=== PATIENT | female | born 1970 | race Two or more races ===

== ENCOUNTER 2016-09-28 06:18 | Emergency (ER) | payer MEDICAID ==
[2016-09-28] MEDS ORDERED: NORMAL SALINE 1000 ML 1,000 ML IV ONE (06:47)
[2016-09-28] MEDS ORDERED: ONDANSETRON HCL INJ/PF 4 MG/2 ML SDV IV ONE ×2 (06:47→06:59)
[2016-09-28] MEDS ORDERED: MAG HYDROX/AL HYDROX/SIMETH SUSP 30 ML UDCUP PO ONE ×2 (06:59→08:39)
[2016-09-28] MEDS ORDERED: LIDOCAINE 2% VISCOUS SOLN 20 ML UDCUP PO ONE ×2 (06:59→08:39)
[2016-09-28] MEDS ORDERED: FAMOTIDINE INJ/PF 20 MG/2 ML SDV IV ONE (06:59)
--- NOTE | 2016-09-28 07:04 | ER Document Report ---
ED GI/ - General Information source: Patient TRAVEL OUTSIDE OF THE [place] IN LAST 30 DAYS: No - HPI Patient complains to provider of: Abdominal pain Onset: This morning - ~02:00 Timing/Duration: Sudden, Persistent Location: Epigastric Associated symptoms: Nausea, Vomiting, Other - "soft bowel movements". denies: Fever <ALINA PHILLIPS - Last Filed: 09/28/16 06:58> <IRMA KENT - Last Filed: 09/28/16 09:12> - General Chief Complaint: Abdominal Pain Stated Complaint: ABDOMINAL PAIN,VOMITING Notes: Patient is a 46-year-old female presenting to the emergency department concerned of epigastric abdominal pain onset at approximately 02:00 today. Patient admits to nausea, vomiting, and "soft bowel movements". Patient denies any fever. Patient states that she ate hot peppers yesterday at 09:00 and 15: 00. Patient also states that she drank alcohol and then ate beans and vegetables. After that, patient states that she went to sleep. Patient admits to occasional acid reflux. (ALINA PHILLIPS) - Related Data Allergies/Adverse Reactions: Sulfa (Sulfonamide Antibiotics) Allergy (Verified 02/09/15 13:39) Hives Past Medical History - General Information source: Patient - Social History Smoking Status: Never Smoker Chew tobacco use (# tins/day): Yes Frequency of alcohol use: Social Family History: Reviewed & Not Pertinent, Arthritis, CAD, CVA, Hyperlipidemia, Hypertension Musculoskeltal Medical History: Reports Hx Arthritis, Reports Hx Musculoskeletal Deformity, Reports Hx Musculoskeletal Trauma Psychiatric Medical History: Reports: Hx Bipolar Disorder, Hx Depression Traumatic Medical History: Reports: Hx Fractures - hands feet Past Surgical History: Reports: Hx Section, Hx Orthopedic Surgery - Immunizations Hx Diphtheria, Pertussis, Tetanus Vaccination: Yes <ALINA PHILLIPS - Last Filed: 09/28/16 06:58> Review of Systems - Review of Systems Constitutional: No symptoms reported. denies: Fever EENT: No symptoms reported Cardiovascular: No symptoms reported Respiratory: No symptoms reported Gastrointestinal: Abdominal pain, Diarrhea - "soft bowel movements", Nausea, Vomiting Genitourinary: No symptoms reported Female Genitourinary: No symptoms reported Musculoskeletal: No symptoms reported Skin: No symptoms reported Hematologic/Lymphatic: No symptoms reported Neurological/Psychological: No symptoms reported -: Yes All other systems reviewed and negative <ALINA PHILLIPS - Last Filed: 09/28/16 06:58> Physical Exam - General General appearance: Alert - HEENT Head: Normocephalic, Atraumatic Eyes: Normal Pupils: PERRL - Respiratory Respiratory status: No respiratory distress Chest status: Nontender Breath sounds: Normal Chest palpation: Normal - Cardiovascular Rhythm: Regular Heart sounds: Normal auscultation Murmur: No - Abdominal Inspection: Obese Distension: No distension Bowel sounds: Normal Tenderness: Tender - Epigastric tenderness Organomegaly: No organomegaly - Back Back: Normal, Nontender - Extremities General upper extremity: Normal inspection General lower extremity: Normal inspection - Neurological Neuro grossly intact: Yes Cognition: Normal Vielka Coma Scale Eye Opening: Spontaneous [place] Coma Scale Verbal: Oriented [place] Coma Scale Motor: Obeys Commands Vielka Coma Scale Total: 15 Speech: Normal - Psychological Associated symptoms: Normal affect, Normal mood - Skin Skin Temperature: Warm Skin Moisture: Dry Skin Color: Normal <ALINA PHILLIPS - Last Filed: 09/28/16 06:58> Course <ALINA PHILLIPS - Last Filed: 09/28/16 06:58> - Laboratory Result Diagrams: 09/28/16 07:40 09/28/16 07:40 <IRMA KENT - Last Filed: 09/28/16 09:12> - Re-evaluation Re-evalutation: 09/28/16 08:40 Patient was sleeping. He was given for exam. He states the cocktail improved her discomfort but is starting come back now. It appears her symptoms are combination of eating hot peppers throughout the day , and drinking alcohol on an empty stomach. She does have prior visits for severe injuries related to excessive alcohol use. (IRMA KENT) - Vital Signs Vital signs: Temp Pulse Resp BP Pulse Ox 98.5 F 116 H 20 139/95 H 95 09/28/16 06:24 09/28/16 06:24 09/28/16 06:24 09/28/16 06:24 09/28/16 06:24 (ALINA PHILLIPS) (IRMA KENT) - Laboratory Laboratory results interpreted by me: 09/28/16 09/28/16 09/28/16 07:40 07:40 08:15 WBC 12.7 H Seg Neutrophils % 83.4 H Lymphocytes % 11.9 L Absolute Neutrophils 10.6 H Sodium 145.3 H Glucose 136 H AST 90 H ALT 100 H Total Protein 8.5 H Urine Protein 100 H Urine Blood LARGE H (YOLI,IRMA) Discharge <ALINA PHILLIPS - Last Filed: 09/28/16 06:58> <YOLI,IRMA - Last Filed: 09/28/16 09:12> - Discharge Clinical Impression: GERD (gastroesophageal reflux disease) Qualifiers: Esophagitis presence: esophagitis presence not specified Qualified Code(s): K21.9 - Gastro-esophageal reflux disease without esophagitis Condition: Stable Disposition: HOME, SELF-CARE Additional Instructions: Reflux Disease (GERD): Gastro-Esophageal Reflux Disease (GERD) is caused by stomach acid refluxing back up into the esophagus. The valve at the end of the esophagus may be weak. This is common in persons with a hiatal hernia. GERD symptoms can include indigestion, chest pain, heartburn, or food "sticking." Certain foods, alcohol, and aspirin can make GERD worse. Treatment depends on the severity. Usually, antacids or acid-suppressing medicines are used. When the esophagus is acutely inflamed, the physician will often prescribe membrane-protective drugs such as Carafate. Some patients benefit from medication such as Reglan that tightens the valve at the top of the stomach. Avoid those foods that bring on your symptoms. For many people, these foods are coffee, chocolate, onions, garlic, and carbonated drinks. Don't use alcohol, aspirin, caffeine, or tobacco. Don't eat late at night -- within 4 hours of bedtime. Don't over-eat. If necessary, elevate the head of your bed about 4 inches so that stomach acid will not roll up into your esophagus. Call the doctor if you develop severe chest pain, inability to swallow fluids, fever, or worsening symptoms. Gastritis: You have an inflammation of the stomach called gastritis. This commonly causes upper abdominal pain, nausea, and vomiting. In severe cases, bleeding of the stomach lining can occur. Gastritis can be caused by bacteria or viruses , alcohol, or stomach-irritating drugs. Begin with sips of clear liquids. Take increasing amounts of fluid over the first 24 hours. Then start small amounts of bland foods (such as dry toast , applesauce, mashed potato). Gradually resume your usual diet. You should take antacids every two hours until the pain has subsided. Acid -suppressing drugs may be prescribed as well. Avoid aspirin, caffeine, tobacco , and alcohol. If the abdominal pain worsens, or there is evidence of major bleeding in the stomach (such as black, tarry stool, bloody or black vomit, or lightheadedness), you should return immediately. Call the doctor if you aren't improved in 24 to 36 hours. EAT A BLAND DIET. TAKE PRILOSEC OTC EVERY DAY. AVOID ALCOHOL, ACIDIC DRINKS, SPICEY FOODS, ETC. TAKE ANTI-ACIDS BETWEEN MEALS AND AT BEDTIME. FOLLOW UP WITH YOUR DOCTOR IF NOT IMPROVING. RETURN TO THE EMERGENCY ROOM IF ANY NEW OR WORSENING SYMPTOMS. Referrals: MISTY MAN MD [Primary Care Provider] - Follow up as needed Scribe Attestation: 09/28/16 09:12 I personally performed the services described in the documentation, reviewed and edited the documentation which was dictated to the scribe in my presence, and it accurately records my words and actions. (IRMA KENT) Scribe Documentation <ALINA PHILLIPS - Last Filed: 09/28/16 06:58> <IRMA KENT - Last Filed: 09/28/16 09:12> - Scribe Written by Scribe:: IRMA KENT MD, SCRIBE 09/28/16 [id number] Acting as scribe for: Dr. Kent (ALINA PHILLIPS) (IRMA KENT)
[2016-09-28 08:05] LABS: ABSOLUTE EOSINOPHILS # (AUTO) 0.1 10^3/uL (0.0-0.6); ABSOLUTE LYMPHOCYTES (AUTO) 1.5 10^3/uL (0.5-4.7); ABSOLUTE MONOCYTES (AUTO) 0.5 10^3/uL (0.1-1.4); ABSOLUTE NEUT (AUTO) 10.6 10^3/uL (1.7-8.2); BASOPHILS % (AUTO) 0.3 % (0-2); EOSINOPHILS % (AUTO) 0.5 % (0-6); HEMATOCRIT 46.8 % (36.0-47.0); HEMOGLOBIN 15.2 g/dL (12.0-15.5); HGB HCT DIFFERENCE -1.2; LYMPHOCYTES % (AUTO) 11.9 % (13-45); MEAN CORPUSCULAR HEMOGLOBIN 29.5 pg (27.0-33.4); MEAN CORPUSCULAR HGB CONC 32.4 g/dL (32.0-36.0); MEAN CORPUSCULAR VOLUME 91 fl (80-97); MONOCYTES % (AUTO) 3.9 % (3-13); RED BLOOD COUNT 5.14 10^6/uL (3.72-5.28); RED CELL DISTRIBUTION WIDTH 13.1 % (11.5-14.0); SEGMENTED NEUTROPHILS % (AUTO) 83.4 % (42-78); WHITE BLOOD COUNT 12.7 10^3/uL (4.0-10.5)
[2016-09-28 08:30] LABS: ALANINE AMINOTRANSFERASE 100 U/L (9-52); ALBUMIN 4.8 g/dL (3.5-5.0); ALKALINE PHOSPHATASE 117 U/L (38-126); ANION GAP 14 (5-19); ASPARTATE AMINO TRANSFERASE 90 U/L (14-36); BILIRUBIN,TOTAL 0.5 mg/dL (0.2-1.3); BLOOD UREA NITROGEN 8 mg/dL (7-20); CARBON DIOXIDE 27 mmol/L (22-30); CHLORIDE 104 mmol/L (98-107); CREATININE RESULT 0.63 mg/dL (0.52-1.25); GLUCOSE 136 mg/dL (75-110); POTASSIUM 4.7 mmol/L (3.6-5.0); SODIUM 145.3 mmol/L (137-145); TOTAL PROTEIN 8.5 g/dL (6.3-8.2)
[2016-09-28 08:45] LABS: AMORPHOUS SEDIMENT,URINE TRACE /HPF; APPEARANCE,URINE TURBID; BILIRUBIN,URINE NEGATIVE (NEGATIVE); GLUCOSE, URINE NEGATIVE (NEGATIVE); KETONES,URINE NEGATIVE (NEGATIVE); LEUKOCYTE ESTERASE,URINE NEGATIVE (NEGATIVE); NITRITE,URINE NEGATIVE (NEGATIVE); PROTEIN,URINE 100 mg/dL (NEGATIVE); URINE SPECIFIC GRAVITY 1.025; UROBILINOGEN,URINE NEGATIVE mg/dL (<2.0)
[2016-09-28] MEDS ORDERED: FENTANYL CITRATE INJ/PF 100 MCG/2 ML AMPUL IV ONE (09:18)
[2016-09-28 10:42] VITALS: BP 150/88
== END 2016-09-28 10:42 | disposition home or self-care (01) ==
LOC: ER 06:18
DX: K21.9 Gastro-esophageal reflux disease without esophagitis (principal); R10.13 Epigastric pain; R11.2 Nausea with vomiting, unspecified; E66.9 Obesity, unspecified; R19.7 Diarrhea, unspecified; Z88.2 Allergy status to sulfonamides
CPT/HCPCS: 99284; 96361; 96374; 96375; 36415; 84703; 85025; 80053; 81001; J3010; J3490 ×2; J2405; J7030; S0028

== ENCOUNTER 2017-06-07 22:04 | Emergency (ER) | payer MEDICAID ==
[2017-06-07] MEDS ORDERED: ACETAMINOPHEN 325 MG TABLET PO ONE (22:14)
--- NOTE | 2017-06-07 22:47 | RADIOLOGY REPORT (SQ) ---
EXAM DESCRIPTION: ANKLE RIGHT COMPLETE COMPLETED DATE/TIME: 06/07/2017 10:35 pm REASON FOR STUDY: pain COMPARISON: None. NUMBER OF VIEWS: Three views. TECHNIQUE: AP, lateral, and oblique radiographic images acquired of the right ankle. LIMITATIONS: None. FINDINGS: MINERALIZATION: Normal. BONES: No acute fracture or dislocation. There is bony deformity of the distal tibia presumably rela tonya to previous trauma. JOINTS: No effusions. SOFT TISSUES: No soft tissue swelling. No foreign body. OTHER: Orthopedic hardware is identified at the level of the distal tibia. IMPRESSION: No acute fracture or dislocation. Postsurgical changes at the level of the distal tibia with orthopedic hardware and deformity of the distal tibia presumably related to previous trauma. O ther findings as noted above TECHNICAL DOCUMENTATION: JOB ID: [id number] [employer]- All Rights Reserved
--- NOTE | 2017-06-07 22:49 | RADIOLOGY REPORT (SQ) ---
EXAM DESCRIPTION: FOOT RIGHT COMPLETE COMPLETED DATE/TIME: 06/07/2017 10:35 pm REASON FOR STUDY: fall COMPARISON: August 2015 NUMBER OF VIEWS: Three views. TECHNIQUE: AP, lateral and oblique radiographic images acquired of the right foot. LIMITATIONS: None. FINDINGS: MINERALIZATION: Normal. BONES: No acute fracture or dislocation. A separate bony ossicle is identified at the level of the p roximal end of the proximal phalanx of the 1st digit which may be related to previous trauma JOINTS: Degenerative changes are again identified at the level of the 1st MCP joint and at the level of the DIP joint of the 3rd digit. SOFT TISSUES: No soft tissue swelling. No foreign body. OTHER: Minimal plantar spurring is identified. IMPRESSION: Degenerative changes without evidence for acute fracture or dislocation. Other findings as noted above TECHNICAL DOCUMENTATION: JOB ID: [id number]- All Rights Reserved
--- NOTE | 2017-06-07 22:51 | ER Document Report ---
ED Extremity Problem, Lower - General Chief Complaint: Ankle Injury Stated Complaint: ANKLE INJURY Time Seen by Provider: 06/07/17 22:14 TRAVEL OUTSIDE OF THE [place] IN LAST 30 DAYS: No - HPI Patient complains to provider of: Injury - right ankle Location: Ankle - rolled her ankle tonight at her home Occurred: Just prior to arrival Where: Home Quality of pain: Achy Severity: None - in the splint Context: Twisted Recent injury: Yes - earlier this evening Associated symptoms: Painful ambulation. denies: Chest pain, Chills, Dizzy, Fainting, Fever, Traill a crack, Traill a pop, Hurts to breath, Rapid heart rate, Seizure, Short of breath, Sweaty, Unable to bear weight, Weak, Other Exacerbated by: Movement, Walking Relieved by: Elevation, Ice, Rest Other injuries: previous hardware in this ankle form previous trauma - Related Data Allergies/Adverse Reactions: Sulfa (Sulfonamide Antibiotics) Allergy (Verified 02/09/15 13:39) Hives Past Medical History - Social History Smoking Status: Current Every Day Smoker Frequency of alcohol use: Social Family History: Reviewed & Not Pertinent, Arthritis, CAD, CVA, Hyperlipidemia, Hypertension - Past Medical History Cardiac Medical History: Denies: Hx Heart Attack, Hx Hypertension Pulmonary Medical History: Denies: Hx Asthma Neurological Medical History: Denies: Hx Cerebrovascular Accident, Hx Seizures Renal/ Medical History: Denies: Hx Peritoneal Dialysis GI Medical History: Denies: Hx Hepatitis, Hx Hiatal Hernia, Hx Ulcer Musculoskeltal Medical History: Reports Hx Arthritis, Reports Hx Musculoskeletal Deformity, Reports Hx Musculoskeletal Trauma Psychiatric Medical History: Reports: Hx Bipolar Disorder, Hx Depression Traumatic Medical History: Reports: Hx Fractures - hands feet Infectious Medical History: Denies: Hx Hepatitis Past Surgical History: Reports: Hx Section, Hx Orthopedic Surgery. Denies: Hx Mastectomy, Hx Open Heart Surgery, Hx Pacemaker - Immunizations Hx Diphtheria, Pertussis, Tetanus Vaccination: Yes Review of Systems - Review of Systems Constitutional: No symptoms reported Musculoskeletal: See HPI Neurological/Psychological: No symptoms reported -: Yes All other systems reviewed and negative Physical Exam - Vital signs Vitals: Temp Pulse Resp BP Pulse Ox 98.9 F 108 H 20 114/87 H 97 06/07/17 22:05 06/07/17 22:05 06/07/17 22:05 06/07/17 22:05 06/07/17 22:05 - General General appearance: Appears well, Alert In distress: None - Cardiovascular Pulses: Normal: Popliteal, Posterior tibial, Dorsalis pedis Normal capillary refill: Yes - Extremities General lower extremity: Normal inspection, Tender - medial malleolus, Normal color, Normal ROM, Normal strength, Normal temperature, Normal weight bearing Calf: Normal, Nontender Ankle: Normal, Tender. No: Nontender, Abrasion, Deformity, Edema, Ecchymosis, Instability, Laceration, Limited ROM, Positive Hernandez's test, Unable to bear weight, Other Foot: Normal, Nontender - Neurological Neuro grossly intact: Yes Cognition: Normal Orientation: AAOx4 Vielka Coma Scale Eye Opening: Spontaneous [place] Coma Scale Verbal: Oriented Viel[place] Coma Scale Motor: Obeys Commands [place] Coma Scale Total: 15 Motor strength normal: LLE, RLE Additional motor exam normals: Equal derrick man. No: Weakness Sensory: Normal - Skin Skin Temperature: Warm Skin Moisture: Dry Skin Color: Normal Skin Turgor: Elastic Course - Re-evaluation Re-evalutation: 06/08/17 22:10 No evidence of a septic joint, gout flare, dislocation, or fracture on exam and imaging. Vitals wnl. At this time, I do not see an indication for labs or further imaging. Will discharge with conservative measures, return precautions, and follow-up recommendations. - Vital Signs Vital signs: Temp Pulse Resp BP Pulse Ox 98.9 F 105 H 22 H 118/77 99 06/07/17 22:05 06/07/17 23:20 06/07/17 23:20 06/07/17 23:20 06/07/17 23:20 - Diagnostic Test Radiology reviewed: Image reviewed, Reports reviewed Discharge - Discharge Clinical Impression: Ankle injury Qualifiers: Encounter type: initial encounter Laterality: right Qualified Code(s): S99.911A - Unspecified injury of right ankle, initial encounter Condition: Good Disposition: HOME, SELF-CARE Instructions: Use of Crutches ([facility]), Ice & Elevation ([facility]), Sprained Ankle ([facility] ) Referrals: LOCALMD,NO [Primary Care Provider] - Follow up as needed
[2017-06-07 23:21] VITALS: BP 118/77
== END 2017-06-07 23:20 | disposition home or self-care (01) ==
LOC: ER 22:04
DX: S99.911A Unspecified injury of right ankle, initial encounter (principal); M25.571 Pain in right ankle and joints of right foot; X58.XXXA Exposure to other specified factors, initial encounter; F17.200 Nicotine dependence, unspecified, uncomplicated
CPT/HCPCS: 99283; 73610; 73630; L1902; J3490

== ENCOUNTER 2017-06-19 09:18 | Day surgery (SDC) | payer MEDICAID ==
[2017-06-11 09:41] LABS: ABSOLUTE EOSINOPHILS # (AUTO) 0.1 10^3/uL (0.0-0.6); ABSOLUTE LYMPHOCYTES (AUTO) 1.8 10^3/uL (0.5-4.7); ABSOLUTE MONOCYTES (AUTO) 0.4 10^3/uL (0.1-1.4); ABSOLUTE NEUT (AUTO) 4.9 10^3/uL (1.7-8.2); BASOPHILS % (AUTO) 0.4 % (0-2); EOSINOPHILS % (AUTO) 1.6 % (0-6); HEMOGLOBIN 14.3 g/dL (12.0-15.5); HGB HCT DIFFERENCE 1.9; LYMPHOCYTES % (AUTO) 25.2 % (13-45); MEAN CORPUSCULAR HEMOGLOBIN 30.7 pg (27.0-33.4); MEAN CORPUSCULAR VOLUME 88 fl (80-97); MONOCYTES % (AUTO) 5.2 % (3-13); RED BLOOD COUNT 4.67 10^6/uL (3.72-5.28); SEGMENTED NEUTROPHILS % (AUTO) 67.6 % (42-78); WHITE BLOOD COUNT 7.3 10^3/uL (4.0-10.5)
[2017-06-11 09:52] LABS: APPEARANCE,URINE SLIGHTLY-CLOUDY; BILIRUBIN,URINE NEGATIVE (NEGATIVE); GLUCOSE, URINE NEGATIVE (NEGATIVE); KETONES,URINE TRACE mg/dL (NEGATIVE); LEUKOCYTE ESTERASE,URINE NEGATIVE (NEGATIVE); NITRITE,URINE NEGATIVE (NEGATIVE); PROTEIN,URINE 30 mg/dL (NEGATIVE); URINE SPECIFIC GRAVITY 1.035
[2017-06-11 10:13] LABS: ANION GAP 9 (5-19); BLOOD UREA NITROGEN 11 mg/dL (7-20); CALCIUM 9.1 mg/dL (8.4-10.2); CARBON DIOXIDE 25 mmol/L (22-30); CHLORIDE 107 mmol/L (98-107); CREATININE RESULT 0.73 mg/dL (0.52-1.25); GLUCOSE 120 mg/dL (75-110); POTASSIUM 3.7 mmol/L (3.6-5.0)
--- NOTE | 2017-06-11 11:04 | RADIOLOGY REPORT (SQ) ---
EXAM DESCRIPTION: CHEST PA/LATERAL COMPLETED DATE/TIME: 06/11/2017 10:38 am REASON FOR STUDY: PRE OP M77.11 LATERAL EPICONDYLITIS, RIGHT ELBOW COMPARISON: 01/19/2016 NUMBER OF VIEWS: Two view. TECHNIQUE: Frontal and lateral radiographic views of the chest acquired. LIMITATIONS: None. FINDINGS: LUNGS AND PLEURA: No opacities, masses or pneumothorax. No pleural effusion. MEDIASTINUM AND HILAR STRUCTURES: No masses. No contour abnormalities. HEART AND VASCULAR STRUCTURES: Heart enlarged without failure. Aorta normal for age. BONES: No acute findings. HARDWARE: None in the chest. OTHER: No other significant finding. IMPRESSION: CARDIAC ENLARGEMENT WITHOUT FAILURE. TECHNICAL DOCUMENTATION: JOB ID: [id number] [employer]- All Rights Reserved
--- NOTE | 2017-06-11 12:23 | EKG REPORT ---
SEVERITY:- ABNORMAL ECG - SINUS RHYTHM LEFT VENTRICULAR HYPERTROPHY : Confirmed by: Sapna Hugo MD 11-Jun-2017 12:23:08
[~2017-06-19 09:18] MED LIST: CEFAZOLIN 2 GM/D5W RTU 2 GM/50 ML RTUPB IV PRN; LACTATED RINGERS 1000 ML IV PRN; LIDOCAINE 0.5% INJ-PF (5 MG/ML) 50 ML SDV SUBCUT PRN
[2017-06-19] MEDS ORDERED: SUCCINYLCHOLINE CHLORIDE INJ 200 MG/10 ML VIAL ONE (11:01)
[2017-06-19] MEDS ORDERED: EPHEDRINE SULFATE INJ 50 MG/1 ML AMPULE ONE (12:08)
[2017-06-19] MEDS ORDERED: IBUPROFEN INJ 800 MG/8 ML VIAL IV ONE (12:08)
[2017-06-19] MEDS ORDERED: ONDANSETRON HCL INJ/PF 4 MG/2 ML SDV ONE (12:08)
[2017-06-19] MEDS ORDERED: PROPOFOL INJ 200 MG/20 ML VIAL IV ONE (12:08)
[2017-06-19] MEDS ORDERED: FENTANYL CITRATE INJ/PF 250 MCG/5 ML AMPULE ONE (12:08)
[2017-06-19] MEDS ORDERED: MIDAZOLAM 2 MG/2 ML INJ ONE (12:08)
[2017-06-19] MEDS ORDERED: DEXAMETHASONE SOD PHOSPHATE INJ 4 MG/1 ML VIAL ONE (12:08)
[2017-06-19] MEDS ORDERED: HYDROMORPHONE HCL INJ/PF 2 MG/ML AMPULE ONE (12:09)
[2017-06-19] MEDS ORDERED: FENTANYL CITRATE INJ/PF 100 MCG/2 ML AMPUL IV PRN ×3 (13:33)
[2017-06-19] MEDS ORDERED: MEPERIDINE HCL/PF INJ 25 MG/1 ML DISP.SYRIN IV PRN (13:33)
[2017-06-19] MEDS ORDERED: PROMETHAZINE HCL INJ 25 MG/1 ML VIAL IV PRN (13:33)
[2017-06-19] MEDS ORDERED: DIPHENHYDRAMINE HCL 50 MG/ML VIAL IV PRN (13:33)
[2017-06-19] MEDS ORDERED: BUPIVACAINE HCL 0.5%-EPI 1:200000 INJ/PF 30 ML VIAL ONE (13:46)
--- NOTE | 2017-06-19 14:51 | Operative Report ---
Operative Report DATE OF SURGERY: 06/19/17 PREOPERATIVE DIAGNOSIS: Right lateral epicondylitis POSTOPERATIVE DIAGNOSIS: Same OPERATION: Right elbow epicondylectomy and ECRB debridement and repair SURGEON: HARJEET BOSWELL ANESTHESIA: GA TISSUE REMOVED OR ALTERED: Degenerative ECRB tendon and rongured bone from lateral epicondyle COMPLICATIONS: None ESTIMATED BLOOD LOSS: 10mL INTRAOPERATIVE FINDINGS: As above PROCEDURE: Patient received preoperative antibiotics in the holding area and then was brought to the operating room where she was induced and intubated in the supine position. The right upper extremity was prepped and draped in a normal sterile surgical fashion. Timeout was done identifying the right side is a correct site. A sterile tourniquet was applied to the right upper arm. Extremity was elevated and the tourniquet was inflated at 250 mmHg. Quarter percent Marcaine with epinephrine then was injected in the anticipated surgical site. A 10 blade was used to do a 2 inch incision right over the lateral aspect of the lateral epicondyle. Standard Anabella approach was done to the epicondyle and radiocapitellar joint. The splitting of the conjoined tendon was done and and the debridement of the ECRB was done using a combination of ronguer and 15 blade. Once I was satisfied with the debridement of the ECRB disease tendon I proceeded to then used a rondure and rasp to debride and do a partial resection of the lateral epicondyle. At this point and I used a 3.0 mm bio composite suture tack and drilled and placed into the lateral epicondyle. Free needle was used then to pass the double loaded suture through the conjoined tendon for repair. I was able then to do knots to secure and repair the split of the tendon. The strands were then cut and then used 0 Vicryl to reinforce the repair. I reapproximated the subcutaneous tissue with 0 Vicryl and 2-0 Vicryl for the dermis and then 3-0 nylon for the skin. On the skin I used horizontal mattress technique. Extremity was cleaned and Xeroform followed by 4 x 4 dressing and soft roll was applied. Tourniquet was let down at 37 minutes and then Avila bandage was applied and the drapes were removed. Patient was successfully extubated and sent to PACU in a stable condition
[2017-06-19] MEDS ORDERED: OXYCODONE-ACETAMINOPHEN 5-325 MG TABLET PO PRN (14:57)
--- NOTE | 2017-06-19 14:57 | PDOC DISCHARGE SUMMARY ---
Discharge Summary (SDC) - Discharge Final Diagnosis: Right lateral epicondylectomy and tendon debridement Date of Surgery: 06/19/17 Discharge Date: 06/19/17 Condition: Good Treatment or Instructions: Patient to keep dressing on for 4 days. Okay to do gentle passive range of motion of the elbow. Wear sling as needed. Avoid heavy lifting anything greater than 5 pounds. Wear wrist brace as needed. Follow-up in 10-14 days. Prescriptions: Oxycodone HCl/Acetaminophen [Percocet 5-325 mg Tablet] 1 tab PO ASDIR PRN #30 tab PRN Reason: Referrals: MISTY MAN MD [Primary Care Provider] - Discharge Diet: As Tolerated Respiratory Treatments at Home: Deep Breathing/Coughing Discharge Activity: Activity As Tolerated, No Lifting/Push/Pulling Home Care Assistance: None Needed Report the Following to Your Physician Immediately: Shortness of Breath, Fever over 101 Degrees, Unusual Bleeding, Redness, Swelling, Warmth, Increased Soreness, Drainage-Yellow, Drainage-Elizabeth, Drainage-Green, Drainage-Foul Smelling
[2017-06-19 16:41] VITALS: BP 155/90
== END 2017-06-19 16:20 | disposition home or self-care (01) ==
LOC: OROUT 09:18
PROVIDERS: ATTEND Orthopaedic Surgery
PROC: 0LB30ZZ Excision of Right Upper Arm Tendon, Open Approach (ICD-10-PCS; 2017-06-19)
PROC: 0PBF0ZZ Excision of Right Humeral Shaft, Open Approach (ICD-10-PCS; principal; 2017-06-19 13:00)
DX: M77.11 Lateral epicondylitis, right elbow (principal); I10 Essential (primary) hypertension; Z88.2 Allergy status to sulfonamides; Z79.899 Other long term (current) drug therapy; Z79.1 Long term (current) use of non-steroidal anti-inflammatories (NSAID); Z87.891 Personal history of nicotine dependence; E66.9 Obesity, unspecified; Z68.37 Body mass index [BMI] 37.0-37.9, adult
CPT/HCPCS: 24358; 93005; 36415; 85025; 81025; 80048; 81001; 71020; 93010; L3650; J2250; J3490; J1100; J3010; J1170; J0330; J2405; J2704; J0690; J1741; 1740

== ENCOUNTER 2019-03-07 08:13 | Inpatient (IN) | payer MEDICAID ==
[2019-03-07] MEDS ORDERED: ONDANSETRON HCL INJ/PF 4 MG/2 ML SDV IV ONE (09:00)
[2019-03-07] MEDS ORDERED: MORPHINE SULFATE 10 MG/ML INJ IV ONE ×3 (09:00→14:37)
[2019-03-07] MEDS ORDERED: FAMOTIDINE INJ/PF 20 MG/2 ML SDV IV ONE (09:00)
[2019-03-07] MEDS ORDERED: NORMAL SALINE 1000 ML 1,000 ML IV ONE (09:01)
[2019-03-07 09:07] LABS: ABSOLUTE BASOPHILS # (AUTO) 0.1 10^3/uL (0.0-0.2); ABSOLUTE EOSINOPHILS # (AUTO) 0.1 10^3/uL (0.0-0.6); ABSOLUTE LYMPHOCYTES (AUTO) 2.9 10^3/uL (0.5-4.7); ABSOLUTE MONOCYTES (AUTO) 0.6 10^3/uL (0.1-1.4); ABSOLUTE NEUT (AUTO) 8.2 10^3/uL (1.7-8.2); BASOPHILS % (AUTO) 0.8 % (0-2); EOSINOPHILS % (AUTO) 0.8 % (0-6); HEMATOCRIT 47.8 % (36.0-47.0); HEMOGLOBIN 16.5 g/dL (12.0-15.5); LYMPHOCYTES % (AUTO) 24.3 % (13-45); MEAN CORPUSCULAR HEMOGLOBIN 30.4 pg (27.0-33.4); MEAN CORPUSCULAR HGB CONC 34.5 g/dL (32.0-36.0); MEAN CORPUSCULAR VOLUME 88 fl (80-97); MONOCYTES % (AUTO) 5.1 % (3-13); PLATELET COUNT 262 10^3/uL (150-450); RED BLOOD COUNT 5.43 10^6/uL (3.72-5.28); RED CELL DISTRIBUTION WIDTH 13.1 % (11.5-14.0); TOTAL CELLS COUNTED % (AUTO) 100 %; WHITE BLOOD COUNT 11.9 10^3/uL (4.0-10.5)
--- NOTE | 2019-03-07 09:14 | ER Document Report ---
ED GI/ - General Chief Complaint: Abdominal Pain Stated Complaint: VOMITING Time Seen by Provider: 03/07/19 08:44 Primary Care Provider: MISTY MAN MD [Primary Care Provider] - Follow up as needed Notes: Patient is a 48-year-old female presents to the emergency department with a chief complaint of epigastric pain. Patient states that around 10 PM last night she woke up with severe epigastric pain that is intermittent and stabbing in nature. Patient states that throughout the night the pain has gradually gotten worse. Patient states she has had nausea and did vomit once. Patient denies blood in her emesis. Patient states she feels like she does have to burp but cannot do so. Patient states she also feels very constipated. Patient states that last time she had a bowel movement was 2 days ago. Patient states that last night around 2 AM she did attempt to have a bowel movement but it was very hard to come out. Patient denies lower abdominal pain or fever. Patient states last thing she ate was broccoli lasagna around 7 PM last night. Patient states she has had similar pain this before when she had food poisoning in 2009. Patient states the episode in 2009 was more severe. Patient complains of diaphoresis. Patient denies any past medical history or surgical history. Patient states she does have an IUD. Patient states she is does have some tingling with urination but denies back pain. TRAVEL OUTSIDE OF THE [place] IN LAST 30 DAYS: No - Related Data Allergies/Adverse Reactions: latex Allergy (Severe, Verified 03/07/19 08:14) ? Sulfa (Sulfonamide Antibiotics) Allergy (Verified 03/07/19 08:14) Hives Past Medical History - General Information source: Patient - Social History Smoking Status: Unknown if Ever Smoked Cigarette use (# per day): No Chew tobacco use (# tins/day): No Frequency of alcohol use: None Drug Abuse: None Lives with: Family Family History: Reviewed & Not Pertinent, Arthritis, CAD, CVA, Hyperlipidemia, Hypertension Patient has suicidal ideation: No Patient has homicidal ideation: No - Past Medical History Cardiac Medical History: Reports: None Denies: Hx Heart Attack, Hx Hypertension Pulmonary Medical History: Reports: None Denies: Hx Asthma EENT Medical History: Reports: None Neurological Medical History: Reports: None. Denies: Hx Cerebrovascular Accident, Hx Seizures Endocrine Medical History: Reports: None Renal/ Medical History: Reports: None. Denies: Hx Peritoneal Dialysis Malignancy Medical History: Reports: None GI Medical History: Reports: None. Denies: Hx Hepatitis, Hx Hiatal Hernia, Hx Ulcer Musculoskeletal Medical History: Reports Hx Arthritis, Reports Hx Musculoskeletal Deformity, Reports Hx Musculoskeletal Trauma Skin Medical History: Reports None Psychiatric Medical History: Reports: Hx Bipolar Disorder, Hx Depression Traumatic Medical History: Reports: Hx Fractures - hands feet Infectious Medical History: Denies: Hx Hepatitis Past Surgical History: Reports: Hx Section, Hx Orthopedic Surgery. Denies: Hx Mastectomy, Hx Open Heart Surgery, Hx Pacemaker - Immunizations Hx Diphtheria, Pertussis, Tetanus Vaccination: Yes Review of Systems - Review of Systems Constitutional: See HPI EENT: No symptoms reported Cardiovascular: No symptoms reported Respiratory: No symptoms reported Gastrointestinal: See HPI Genitourinary: See HPI Female Genitourinary: No symptoms reported Musculoskeletal: No symptoms reported Skin: No symptoms reported Hematologic/Lymphatic: No symptoms reported Neurological/Psychological: No symptoms reported Physical Exam - Vital signs Vitals: Temp Pulse Resp BP Pulse Ox 97.9 F 87 20 154/99 H 96 03/07/19 08:23 03/07/19 08:23 03/07/19 08:23 03/07/19 08:23 03/07/19 08:23 Interpretation: Hypertensive - Notes Notes: GENERAL: Ill-appearing, well-nourished and in moderate distress. HEAD: Atraumatic, normocephalic. EYES: Pupils equal round and reactive to light, extraocular movements intact, sclera anicteric, conjunctiva are normal. ENT: Nares patent, oropharynx clear without exudates. Moist mucous membranes. NECK: Normal range of motion, supple without lymphadenopathy or JVD. LUNGS: Breath sounds clear to auscultation bilaterally and equal. No wheezes rales or rhonchi. HEART: Regular rate and rhythm without murmurs, rubs or gallops. ABDOMEN: Soft, obese, round, upper abdominal tenderness, normoactive bowel sounds. No guarding. No masses appreciated. BACK: No cervical, thoracic, lumbar midline tenderness. No saddle anesthesia, normal distal neurovascular exam. GENITOURINARY: Deferred. EXTREMITIES: Normal range of motion, no pitting or edema. No clubbing or cyanosis. NEUROLOGICAL: Cranial nerves II through XII grossly intact. Normal speech, normal gait. PSYCH: Normal mood, normal affect. SKIN: Diaphoretic, cool to touch. No rash. Course - Re-evaluation Re-evalutation: 03/07/19 09:13 On initial evaluation patient sitting upright on the side of the bed in moderate distress. Patient is moaning in pain and is diaphoretic. Patient complains of severe intermittent epigastric pain that feels like a stabbing. Patient states she did have similar pain like this before when she had food poisoning in 2009. Patient states that the episode in 2009 was much worse. Patient states last thing she ate was broccoli/lasagna around 7 PM last night. Patient states she has been up all night with worsening of abdominal pain. Patient does require p ain medication as well as anti-nausea medication. Will reassess patient when she is more comfortable and able to lay on the stretcher. IV fluids initiated. She does admit to drinking alcohol socially but states she has not had any in the past 24 hours. Patient does report a history of acid reflux but does not take any medications. 03/07/19 10:03 Reevaluation patient states that her pain is completely gone. Patient states she does feel a rumbling around the epigastric region of her abdomen. Patient states her nausea has improved. Patient states she does have issues with acid reflux and constipation. Patient states she did drink milk this week which usually causes her to have constipation. Patient states she has received a GI cocktail in the past which also improved her symptoms. Patient continues to receive IV fluids. We will continue to monitor. 03/07/19 10:46 Patient states that her pain is starting to come back and is now located in the epigastric and right upper quadrant region of her abdomen. Patient states the GI cocktail did not help with her symptoms. Will obtain a right upper quadrant ultrasound as well as a troponin and EKG to rule out cardiac involvement she is obese and questionable history of hypertension. 03/07/19 12:07 Patient's cardiac work-up negative. Patient states that the pain medication given through her IV helps temporarily but then the pain returns. Patient's right upper quadrant ultrasound is negative. Due to patient's continued pain I will order a CT of the abdomen. I did discuss the case with Dr. Cordova who recommends CT abd. with IV and oral contrast due to possibility of hernia. Upon re-assessment after pain level controlled patient did have an area above the umbilicus that is concerning for possible hernia, area is soft but extremely tender. Patient does have an umbilical hernia that was palpated and partially reduced on examination. CT needed for evaluation and extent of this hernia and continued pain. 03/07/19 12:46 Patient tolerating PO contrast. Patient is not tachycardic or hypotensive. 03/07/19 16:11 Consulted with surgery regarding the patient's CT of the abdomen which showed a small partial bowel obstruction. Dr. Marshall to come and evaluate the patient in the emergency department. He states to go ahead and place an NG tube to low continuous suction. 03/07/19 16:22 I did go to the bedside and explained the diagnosis with the patient as well as the NG tube. Patient does have a child with her at the bedside, earlier she stated that she did have family with her as the grandparents were in the lobby. Did explain admission to the patient and stated that the child was unable to stay with her. The patient is supposed to be contacting family members to come warehouse picker the child. I did question the patient regarding her past medical history. Patient states she has a history of constipation as well as acid reflux. Patient denies abdominal surgeries or history of surgeries. She denies taking any home medications on a daily basis. - Vital Signs Vital signs: Temp Pulse Resp BP Pulse Ox 97.9 F 76 18 154/99 H 95 03/07/19 08:23 03/07/19 11:55 03/07/19 11:00 03/07/19 08:23 03/07/19 11:00 - Laboratory Result Diagrams: 03/07/19 08:55 03/07/19 08:55 Laboratory results interpreted by me: 03/07/19 03/07/19 03/07/19 08:55 08:55 11:00 WBC 11.9 H RBC 5.43 H Hgb 16.5 H Hct 47.8 H Glucose 152 H Calcium 10.9 H AST 66 H ALT 80 H Total Protein 8.4 H Urine Protein 100 H Urine Ketones 20 H Urine Blood LARGE H - EKG Interpretation by Me Additional EKG results interpreted by me: 03/07/19 11:12 Patient's EKG shows a sinus rhythm with a heart rate of 75. [place] is 180, QT is 408 and QTc is 456. Patient has a left axis deviation. There is no ST segment changes noted or in consecutive leads. The EKG appears similar to previous EKG. Discharge - Discharge Clinical Impression: Small bowel obstruction Nausea & vomiting Qualifiers: Vomiting type: unspecified Vomiting Intractability: non-intractable Qualified Code(s): R11.2 - Nausea with vomiting, unspecified Abdominal pain Qualifiers: Abdominal location: upper abdomen, unspecified Qualified Code(s): R10.10 - Upper abdominal pain, unspecified Condition: Stable Disposition: ADMITTED INPATIENT Admitting Provider: Surgicalist Unit Admitted: Surgical Floor Referrals: MISTY MAN MD [Primary Care Provider] - Follow up as needed
[2019-03-07 09:23] LABS: ALANINE AMINOTRANSFERASE 80 U/L (9-52); ALBUMIN 4.7 g/dL (3.5-5.0); ALKALINE PHOSPHATASE 102 U/L (38-126); ANION GAP 12 (5-19); ASPARTATE AMINO TRANSFERASE 66 U/L (14-36); BILIRUBIN,DIRECT 0.4 mg/dL (0.0-0.4); BILIRUBIN,TOTAL 0.8 mg/dL (0.2-1.3); BLOOD UREA NITROGEN 11 mg/dL (7-20); CALCIUM 10.9 mg/dL (8.4-10.2); CARBON DIOXIDE 26 mmol/L (22-30); CHLORIDE 101 mmol/L (98-107); GLUCOSE 152 mg/dL (75-110); LIPASE 47.1 U/L (23-300); POTASSIUM 3.6 mmol/L (3.6-5.0); SODIUM 138.9 mmol/L (137-145); TOTAL PROTEIN 8.4 g/dL (6.3-8.2)
[2019-03-07] MEDS ORDERED: LIDOCAINE 2% VISCOUS SOLN 20 ML UDCUP PO ONE (10:03)
[2019-03-07] MEDS ORDERED: METOCLOPRAMIDE HCL ORAL SOLN 10 MG/10 ML UDCUP PO ONE (10:03)
[2019-03-07] MEDS ORDERED: MAG HYDROX/AL HYDROX/SIMETH SUSP 30 ML UDCUP PO ONE (10:03)
[2019-03-07 11:30] LABS: APPEARANCE,URINE CLEAR; BILIRUBIN,URINE NEGATIVE (NEGATIVE); COLOR,URINE YELLOW; GLUCOSE, URINE NEGATIVE (NEGATIVE); KETONES,URINE 20 mg/dL (NEGATIVE); LEUKOCYTE ESTERASE,URINE NEGATIVE (NEGATIVE); NITRITE,URINE NEGATIVE (NEGATIVE); PROTEIN,URINE 100 mg/dL (NEGATIVE); URINE SPECIFIC GRAVITY 1.025; UROBILINOGEN,URINE NEGATIVE mg/dL (<2.0)
--- NOTE | 2019-03-07 11:57 | RADIOLOGY REPORT (SQ) ---
EXAM DESCRIPTION: U/S ABDOMEN LIMITED W/O DOP COMPLETED DATE/TIME: 03/07/2019 11:42 am REASON FOR STUDY: ruq pain, epigastric pain COMPARISON: None. TECHNIQUE: Dynamic and static grayscale images acquired of the abdomen and recorded on PACS. Additio nal selected color Doppler and spectral images recorded. LIMITATIONS: None. FINDINGS: PANCREAS: No masses. Visualized pancreatic duct normal caliber. LIVER: No masses. Echotexture normal. LIVER VASCULATURE: Normal directional flow of the main portal vein and hepatic veins. GALLBLADDER: No stones. Normal wall thickness. No pericholecystic fluid. ULTRASOUND-DETECTED BENDER'S SIGN: Negative. INTRAHEPATIC DUCTS AND COMMON DUCT: CBD and intrahepatic ducts normal caliber. No filling defects. INFERIOR VENA CAVA: Normal flow. AORTA: No aneurysm. RIGHT KIDNEY: Normal size. Normal echogenicity. No solid or suspicious masses. No hydronephrosis. No calcifications. PERITONEAL AND RIGHT PLEURAL SPACE: No ascites or effusions. OTHER: No other significant findings. IMPRESSION: NORMAL RIGHT UPPER QUADRANT ULTRASOUND. TECHNICAL DOCUMENTATION: JOB ID: [id number] [employer]- All Rights Reserved Reading location - IP/workstation name: [email or web address]
--- NOTE | 2019-03-07 16:05 | RADIOLOGY REPORT (SQ) ---
EXAM DESCRIPTION: CT ABD/PELVIS WITH IV ORAL COMPLETED DATE/TIME: 03/07/2019 3:42 pm REASON FOR STUDY: abdominal pain COMPARISON: None. TECHNIQUE: CT scan of the abdomen and pelvis performed using helical scanning technique with dynamic intravenous contrast injection. With oral contrast oral contrast. Images reviewed with lung, soft t issue, and bone windows. Reconstructed coronal and sagittal MPR images reviewed. Delayed images for e valuation of the urinary system also acquired. All images stored on PACS. All CT scanners at this facility use dose modulation, iterative reconstruction, and/or weight based d osing when appropriate to reduce radiation dose to as low as reasonably achievable (ALARA). [facility]: Dose Right [facility]: CareDose [facility]: Dose Right [facility]: Teradose 4D [facility]: [employer] CONTRAST TYPE AND DOSE: Not recorded RENAL FUNCTION: GFR > 60. RADIATION DOSE: CT Rad equipment meets quality standard of care and radiation dose reduction techniq ues were employed. CTDIvol: 20.8 - 20.8 mGy. DLP: 2317 mGy-cm.. LIMITATIONS: None. FINDINGS: LOWER CHEST: No significant findings. No nodules or infiltrates. LIVER: Marked fatty liver. SPLEEN: Normal size. No focal lesions. PANCREAS: No masses. No significant calcifications. No adjacent inflammation or peripancreatic fluid collections. Pancreatic duct not dilated. GALLBLADDER: No identified stones by CT criteria. No inflammatory changes to suggest cholecystitis. ADRENAL GLANDS: No significant masses or asymmetry. RIGHT KIDNEY AND URETER: No solid masses. No significant calcifications. No hydronephrosis or hyd roureter. LEFT KIDNEY AND URETER: No solid masses. No significant calcifications. No hydronephrosis or hydr oureter. AORTA AND VESSELS: No aneurysm. No dissection. Renal arteries, SMA, celiac without stenosis. RETROPERITONEUM: No retroperitoneal adenopathy, hemorrhage or masses. BOWEL AND PERITONEAL CAVITY: There is dilatation of proximal small bowel loops. There appears to be a transition zone in the mid abdomen. Findings indicate a partial small bowel obstruction. APPENDIX: Normal. PELVIS: IUD in place. ABDOMINAL WALL: No masses. No hernias. BONES: No significant or acute findings. OTHER: No other significant finding. IMPRESSION: Partial small bowel obstruction. Transition zone appears to be some were in the mid abd omen. No obvious reason for obstruction. TECHNICAL DOCUMENTATION: JOB ID: [id number] Quality ID # [id number]: Final reports with documentation of one or more dose reduction techniques (e.g., Au tomated exposure control, adjustment of the mA and/or kV according to patient size, use of iterative reconstruction technique) 2010 [employer]- All Rights Reserved Reading location - IP/workstation name: [email or web address]
[2019-03-07] MEDS ORDERED: ONDANSETRON HCL INJ/PF 4 MG/2 ML SDV IV PRN (17:17)
[2019-03-07] MEDS ORDERED: PHARMACY COMMUNICATION ORDER MC NR (17:30)
--- NOTE | 2019-03-07 17:38 | RADIOLOGY REPORT (SQ) ---
EXAM DESCRIPTION: CHEST SINGLE VIEW COMPLETED DATE/TIME: 03/07/2019 5:23 pm REASON FOR STUDY: NG tube placement COMPARISON: 01/19/2016 EXAM PARAMETERS: NUMBER OF VIEWS: One view. TECHNIQUE: Single frontal radiographic view of the chest acquired. RADIATION DOSE: NA LIMITATIONS: None. FINDINGS: LUNGS AND PLEURA: No opacities, masses or pneumothorax. No pleural effusion. MEDIASTINUM AND HILAR STRUCTURES: No masses. Contour normal. HEART AND VASCULAR STRUCTURES: Heart normal in size. Normal vasculature. BONES: No acute findings. HARDWARE: NG tube tip overlies the body of the stomach. OTHER: No other significant finding. IMPRESSION: NO ACUTE RADIOGRAPHIC FINDING IN THE CHEST.NG tube tip overlies the body of the stomach. TECHNICAL DOCUMENTATION: JOB ID: [id number] [place]-72 2010 [employer]- All Rights Reserved Reading location - IP/workstation name: [email or web address]
--- NOTE | 2019-03-07 18:35 | PDOC H&P ---
History of Present Illness Admission Date/PCP: 03/07/19 17:33 MITSY MAN MD Patient complains of: Abdominal distention, pain, and nausea History of Present Illness: ANISHA RIBEIRO is a 48 year old female with a 12-hour history of abdominal distention and mid, epigastric pain. The patient reports that her last bowel movement was 2 days ago. Her last episode of flatus was yesterday. Patient began having discomfort last night at around 11 or 12:00 at night. She woke up this morning with increasing amounts of discomfort and abdominal distention. She vomited twice. She denies any hematemesis. Patient has never had symptoms like this before. The pain is a burning sensation superior to the umbilicus. Nothing makes her pain better or worse. She rates it is 10 out of 10 at its worst. The patient reports being much more comfortable after pain medication administration. The pain does not radiate. The patient denies chest pain, shortness of breath, fevers, chills, melena, hematochezia, blurry vision, orthostasis, fatigue, rash, or dizziness. The patient's only medical history is hypertension. She has had 2 prior C-sections. Past Medical History Cardiac Medical History: Reports: None Denies: Myocardial Infarction, Hypertension Pulmonary Medical History: Reports: None Denies: Asthma EENT Medical History: Reports: None Neurological Medical History: Reports: None Denies: Seizures Endocrine Medical History: Reports: None Renal/ Medical History: Reports: None Malignancy Medical History: Reports: None GI Medical History: Reports: None Denies: Hepatitis, Hiatal Hernia Musculoskeltal Medical History: Reports: Arthritis Skin Medical History: Reports: None Psychiatric Medical History: Reports: Bipolar Disorder, Depression Hematology: Denies: Anemia, Sickle Cell Disease Past Surgical History Past Surgical History: Reports: Section, Orthopedic Surgery Denies: Amputation, Mastectomy, Pacemaker Social History Lives with: Family Smoking Status: Unknown if Ever Smoked Frequency of Alcohol Use: Heavy Hx Recreational Drug Use: No Drugs: Marijuana Hx Prescription Drug Abuse: No Family History Family History: Reviewed & Not Pertinent, Arthritis, CAD, CVA, Hyperlipidemia, Hypertension Parental Family History Reviewed: Yes Children Family History Reviewed: Yes Sibling(s) Family History Reviewed.: Yes Medication/Allergy Allergies/Adverse Reactions: latex Allergy (Severe, Verified 03/07/19 08:14) ? Sulfa (Sulfonamide Antibiotics) Allergy (Verified 03/07/19 08:14) Hives Review of Systems Constitutional: ABSENT: anorexia, chills, fatigue Eyes: ABSENT: visual disturbances Ears: ABSENT: hearing changes Nose, Mouth, and Throat: ABSENT: sore throat Cardiovascular: ABSENT: chest pain, dyspnea on exertion Respiratory: ABSENT: cough Gastrointestinal: PRESENT: abdominal pain, bloating, heartburn, nausea, vomiting. ABSENT: hematemesis, hematochezia, melena Musculoskeletal: ABSENT: back pain Integumentary: ABSENT: pruritus, rash Neurological: ABSENT: confusion, convulsions, dizziness Psychiatric: PRESENT: depression. ABSENT: anxiety Endocrine: ABSENT: cold intolerance, heat intolerance Hematologic/Lymphatic: ABSENT: easy bleeding, easy bruising Physical Exam Vital Signs: Temp Pulse Resp BP Pulse Ox 97.9 F 76 18 154/99 H 95 03/07/19 08:23 03/07/19 11:55 03/07/19 11:00 03/07/19 08:23 03/07/19 11:00 Intake & Output 03/06/19 03/07/19 03/08/19 06:59 06:59 06:59 Intake Total 1000 Balance 1000 Weight 130.9 kg General appearance: PRESENT: no acute distress, cooperative, morbidly obese Head exam: PRESENT: atraumatic, normocephalic Eye exam: PRESENT: EOMI, PERRLA. ABSENT: scleral icterus Mouth exam: PRESENT: moist, neck supple Neck exam: ABSENT: meningismus, tenderness, thyromegaly, tracheal deviation Respiratory exam: PRESENT: clear to auscultation baudilio, symmetrical, unlabored. ABSENT: chest wall tenderness, tachypnea, wheezes Cardiovascular exam: PRESENT: RRR Pulses: PRESENT: normal radial pulses GI/Abdominal exam: PRESENT: distended - Mild, soft, tenderness - Mild epigastric. ABSENT: rebound, rigid Rectal exam: PRESENT: deferred Extremities exam: ABSENT: clubbing Musculoskeletal exam: ABSENT: deformity Neurological exam: PRESENT: alert, awake, oriented to person, oriented to place, oriented to time, oriented to situation Psychiatric exam: ABSENT: agitated, anxious, depressed Focused psych exam: ABSENT: delusional Skin exam: ABSENT: cyanosis, erythema, jaundice Results Laboratory Results: 03/07/19 08:55 03/07/19 08:55 0603/07/19 03/07/19 08:55 08:55 11:00 WBC 11.9 H RBC 5.43 H Hgb 16.5 H Hct 47.8 H MCV 88 MCH 30.4 MCHC 34.5 RDW 13.1 Plt Count 262 Seg Neutrophils % 69.0 Lymphocytes % 24.3 Monocytes % 5.1 Eosinophils % 0.8 Basophils % 0.8 Absolute Neutrophils 8.2 Absolute Lymphocytes 2.9 Absolute Monocytes 0.6 Absolute Eosinophils 0.1 Absolute Basophils 0.1 Sodium 138.9 Potassium 3.6 Chloride 101 Carbon Dioxide 26 Anion Gap 12 BUN 11 Creatinine 0.62 Est GFR ( Amer) > 60 Est GFR (Non-Af Amer) > 60 Glucose 152 H Lactic Acid Calcium 10.9 H Total Bilirubin 0.8 AST 66 H ALT 80 H Alkaline Phosphatase 102 Total Protein 8.4 H Albumin 4.7 Lipase 47.1 Urine Color YELLOW Urine Appearance CLEAR Urine pH 5.0 Ur Specific Raymond 1.025 Urine Protein 100 H Urine Glucose (UA) NEGATIVE Urine Ketones 20 H Urine Blood LARGE H Urine Nitrite NEGATIVE Ur Leukocyte Esterase NEGATIVE Urine WBC (Auto) 2 Urine RBC (Auto) 1 03/07/19 14:15 WBC RBC Hgb Hct MCV MCH MCHC RDW Plt Count Seg Neutrophils % Lymphocytes % Monocytes % Eosinophils % Basophils % Absolute Neutrophils Absolute Lymphocytes Absolute Monocytes Absolute Eosinophils Absolute Basophils Sodium Potassium Chloride Carbon Dioxide Anion Gap BUN Creatinine Est GFR ( Amer) Est GFR (Non-Af Amer) Glucose Lactic Acid 1.4 Calcium Total Bilirubin AST ALT Alkaline Phosphatase Total Protein Albumin Lipase Urine Color Urine Appearance Urine pH Ur Specific Raymond Urine Protein Urine Glucose (UA) Urine Ketones Urine Blood Urine Nitrite Ur Leukocyte Esterase Urine WBC (Auto) Urine RBC (Auto) 03/07/19 08:55 Troponin I < 0.012 Impressions: Abdomen/Pelvis CT 03/07/19 00:00 IMPRESSION: Partial small bowel obstruction. Transition zone appears to be some were in the mid abdomen. No obvious reason for obstruction. Chest X-Ray 03/07/19 00:00 IMPRESSION: NO ACUTE RADIOGRAPHIC FINDING IN THE CHEST.NG tube tip overlies the body of the stomach. Abdomen Ultrasound 03/07/19 10:45 IMPRESSION: NORMAL RIGHT UPPER QUADRANT ULTRASOUND. Assessment & Plan - Diagnosis (1) Nausea & vomiting Qualifiers: Vomiting type: unspecified Vomiting Intractability: non-intractable Qualified Code(s): R11.2 - Nausea with vomiting, unspecified Is this a current diagnosis for this admission?: Yes (2) Small bowel obstruction Is this a current diagnosis for this admission?: Yes - Plan Summary Plan Summary: This is a 48-year-old female with nausea and vomiting. She has a CT scan which is concerning for a small bowel obstruction. The patient has a history of 2 previous C-sections in the past. On CT, it appears that several loops of small bowel in her pelvis are decompressed. This may be related to scar tissue from previous C-sections. The patient does not exhibit an acute abdomen at this time. She is not excessively tachycardic. I will admit the patient in the hospital, initiate NG decompression, and perform serial abdominal exams. If the patient worsens, or fails to improve with NG decompression, she may require operative exploration. This has been discussed with the patient at length. She is in agreement with the treatment plan.
--- NOTE | 2019-03-07 18:39 | EKG REPORT ---
SEVERITY:- ABNORMAL ECG - SINUS RHYTHM PROBABLE LEFT VENTRICULAR HYPERTROPHY : Confirmed by: Sapna Hugo MD 07-Mar-2019 18:39:25
[2019-03-07] MEDS: NORMAL SALINE 1000 ML 1,000 ML IV PRN (18:59)
[2019-03-07] MEDS: MORPHINE SULFATE 10 MG/ML INJ IV PRN ×2 (19:04→21:52)
[2019-03-07] MEDS ORDERED: PHENOL/SODIUM PHENOLATE 100 SPRAY/177 ML BOTTLE ONE (19:54)
[2019-03-07] MEDS: FAMOTIDINE INJ/PF 20 MG/2 ML SDV IV SCH (21:11)
[2019-03-07] MEDS: PHENOL/SODIUM PHENOLATE 100 SPRAY/177 ML BOTTLE PO PRN (21:12)
[2019-03-08] MEDS: MORPHINE SULFATE 10 MG/ML INJ IV PRN ×7 (01:41→22:14)
[2019-03-08] MEDS: NORMAL SALINE 1000 ML 1,000 ML IV PRN ×2 (04:54→15:28)
[2019-03-08 06:06] LABS: ABSOLUTE EOSINOPHILS # (AUTO) 0.1 10^3/uL (0.0-0.6); ABSOLUTE LYMPHOCYTES (AUTO) 1.3 10^3/uL (0.5-4.7); ABSOLUTE MONOCYTES (AUTO) 0.5 10^3/uL (0.1-1.4); BASOPHILS % (AUTO) 0.3 % (0-2); EOSINOPHILS % (AUTO) 1.2 % (0-6); HEMATOCRIT 44.4 % (36.0-47.0); HEMOGLOBIN 15.3 g/dL (12.0-15.5); LYMPHOCYTES % (AUTO) 18.5 % (13-45); MEAN CORPUSCULAR HEMOGLOBIN 30.7 pg (27.0-33.4); MEAN CORPUSCULAR HGB CONC 34.4 g/dL (32.0-36.0); MEAN CORPUSCULAR VOLUME 89 fl (80-97); MONOCYTES % (AUTO) 7.9 % (3-13); PLATELET COUNT 203 10^3/uL (150-450); RED BLOOD COUNT 4.98 10^6/uL (3.72-5.28); RED CELL DISTRIBUTION WIDTH 13.2 % (11.5-14.0); SEGMENTED NEUTROPHILS % (AUTO) 72.1 % (42-78); TOTAL CELLS COUNTED % (AUTO) 100 %; WHITE BLOOD COUNT 6.9 10^3/uL (4.0-10.5)
[2019-03-08 06:34] LABS: ANION GAP 10 (5-19); BLOOD UREA NITROGEN 9 mg/dL (7-20); CALCIUM 9.3 mg/dL (8.4-10.2); CARBON DIOXIDE 26 mmol/L (22-30); CHLORIDE 102 mmol/L (98-107); GLUCOSE 116 mg/dL (75-110); SODIUM 138.2 mmol/L (137-145)
--- NOTE | 2019-03-08 08:47 | RADIOLOGY REPORT (SQ) ---
EXAM DESCRIPTION: ABDOMEN 2 VIEWS COMPLETED DATE/TIME: 03/08/2019 8:17 am REASON FOR STUDY: SBO COMPARISON: 2009. NUMBER OF VIEWS: Two views. TECHNIQUE: Supine and erect/decubitus radiographic images of the abdomen acquired. LIMITATIONS: Motion. FINDINGS: FREE AIR: None. No abnormal gas collections. LUNG BASES: Clear. BOWEL GAS PATTERN: Mildly dilated loops of small bowel to left of midline. Nasogastric tube in the s tomach. CALCIFICATIONS: No suspicious calcifications. SOFT TISSUES: No gross mass or suggestion of organomegaly. HARDWARE: None in the abdomen. BONES: No acute fracture. No worrisome bone lesions. OTHER: No other significant finding. IMPRESSION: Ileus or partial small bowel obstruction. Good position of nasogastric tube. TECHNICAL DOCUMENTATION: JOB ID: [id number] [email or web address]- All Rights Reserved Reading location - IP/workstation name: [email or web address]
[2019-03-08] MEDS: FAMOTIDINE INJ/PF 20 MG/2 ML SDV IV SCH ×2 (09:55→21:24)
[2019-03-08] MEDS: ENOXAPARIN SODIUM INJ 40 MG/0.4 ML DISP.SYRIN SUBCUT SCH (09:58)
[2019-03-08] MEDS: PHENOL/SODIUM PHENOLATE 100 SPRAY/177 ML BOTTLE PO PRN (10:00)
--- NOTE | 2019-03-08 11:53 | PDOC PROGRESS REPORT ---
Subjective Progress Note for:: 03/08/19 Subjective:: This is a 48-year-old female admitted with a small bowel obstruction, seen on a CT scan. The patient denies any flatus this morning. She still reports some abdominal cramping, however it is improved from admission. She denies any nausea or vomiting. She denies fevers or chills. She also reports no chest pain, shortness of breath, dizziness, orthostasis, blurry vision, rash, pruritus. Reason For Visit: SMALL BOWEL OBSTRUCTION Physical Exam Vital Signs: Temp Pulse Resp BP Pulse Ox 97.9 F 88 17 145/97 H 89 L 03/07/19 23:57 03/07/19 23:57 03/07/19 23:57 03/07/19 23:57 03/07/19 23:57 Intake & Output 03/07/19 03/08/19 03/09/19 06:59 06:59 06:59 Intake Total 1991 Output Total 100 Balance 1991 Weight 108.409 kg General appearance: PRESENT: no acute distress, cooperative, morbidly obese Head exam: PRESENT: atraumatic, normocephalic Eye exam: PRESENT: EOMI, PERRLA. ABSENT: scleral icterus Teeth exam: ABSENT: edentulous, poor dentation Neck exam: ABSENT: meningismus, tenderness, thyromegaly, tracheal deviation Respiratory exam: PRESENT: clear to auscultation baudilio, unlabored. ABSENT: chest wall tenderness Cardiovascular exam: PRESENT: RRR Pulses: PRESENT: normal radial pulses Vascular exam: PRESENT: normal capillary refill GI/Abdominal exam: PRESENT: distended - mild, soft, tenderness - mild. ABSENT: firm, guarding, rebound, rigid Rectal exam: PRESENT: deferred Extremities exam: ABSENT: clubbing Musculoskeletal exam: ABSENT: deformity Neurological exam: PRESENT: alert, awake, oriented to person, oriented to place, oriented to time, oriented to situation Psychiatric exam: ABSENT: agitated, anxious, depressed Focused psych exam: ABSENT: delusional Skin exam: ABSENT: cyanosis, erythema, jaundice Results Laboratory Results: 03/08/19 04:59 03/08/19 04:59 03/07/19 03/08/19 03/08/19 14:15 04:59 04:59 WBC 6.9 RBC 4.98 Hgb 15.3 Hct 44.4 MCV 89 MCH 30.7 MCHC 34.4 RDW 13.2 Plt Count 203 Seg Neutrophils % 72.1 Lymphocytes % 18.5 Monocytes % 7.9 Eosinophils % 1.2 Basophils % 0.3 Absolute Neutrophils 5.0 Absolute Lymphocytes 1.3 Absolute Monocytes 0.5 Absolute Eosinophils 0.1 Absolute Basophils 0.0 Sodium 138.2 Potassium 4.0 Chloride 102 Carbon Dioxide 26 Anion Gap 10 BUN 9 Creatinine 0.60 Est GFR ( Amer) > 60 Est GFR (Non-Af Amer) > 60 Glucose 116 H Lactic Acid 1.4 Calcium 9.3 03/07/19 08:55 Troponin I < 0.012 Impressions: Abdomen/Pelvis CT 03/07/19 00:00 IMPRESSION: Partial small bowel obstruction. Transition zone appears to be some were in the mid abdomen. No obvious reason for obstruction. Chest X-Ray 03/07/19 00:00 IMPRESSION: NO ACUTE RADIOGRAPHIC FINDING IN THE CHEST.NG tube tip overlies the body of the stomach. Abdomen Ultrasound 03/07/19 10:45 IMPRESSION: NORMAL RIGHT UPPER QUADRANT ULTRASOUND. Abdomen X-Ray 03/08/19 06:00 IMPRESSION: Ileus or partial small bowel obstruction. Good position of nasogastric tube. Assessment & Plan - Diagnosis (1) Nausea & vomiting Qualifiers: Vomiting type: unspecified Vomiting Intractability: non-intractable Qualified Code(s): R11.2 - Nausea with vomiting, unspecified Is this a current diagnosis for this admission?: Yes (2) Small bowel obstruction Is this a current diagnosis for this admission?: Yes - Plan Summary Plan Summary: This a 48-year-old female with a small bowel obstruction, seen on CT. The patient reports feeling somewhat better today. She denies any flatus at this time. Continue with NG decompression. Repeat abdominal films tomorrow. Lab work is unremarkable today. Continue with DVT prophylaxis. If the patient does not improve with conservative measures, surgery may be necessary.
[2019-03-09] MEDS: MORPHINE SULFATE 10 MG/ML INJ IV PRN ×5 (01:28→18:29)
[2019-03-09 05:07] LABS: ABSOLUTE EOSINOPHILS # (AUTO) 0.1 10^3/uL (0.0-0.6); ABSOLUTE LYMPHOCYTES (AUTO) 1.1 10^3/uL (0.5-4.7); ABSOLUTE MONOCYTES (AUTO) 0.6 10^3/uL (0.1-1.4); BASOPHILS % (AUTO) 0.3 % (0-2); HEMATOCRIT 41.9 % (36.0-47.0); HEMOGLOBIN 14.5 g/dL (12.0-15.5); LYMPHOCYTES % (AUTO) 16.4 % (13-45); MEAN CORPUSCULAR HGB CONC 34.7 g/dL (32.0-36.0); MEAN CORPUSCULAR VOLUME 89 fl (80-97); MONOCYTES % (AUTO) 9.1 % (3-13); PLATELET COUNT 202 10^3/uL (150-450); RED BLOOD COUNT 4.69 10^6/uL (3.72-5.28); RED CELL DISTRIBUTION WIDTH 13.3 % (11.5-14.0); SEGMENTED NEUTROPHILS % (AUTO) 73.2 % (42-78); TOTAL CELLS COUNTED % (AUTO) 100 %; WHITE BLOOD COUNT 6.9 10^3/uL (4.0-10.5)
[2019-03-09 05:26] LABS: ANION GAP 10 (5-19); BLOOD UREA NITROGEN 9 mg/dL (7-20); CALCIUM 8.7 mg/dL (8.4-10.2); CARBON DIOXIDE 24 mmol/L (22-30); CHLORIDE 105 mmol/L (98-107); GLUCOSE 106 mg/dL (75-110); POTASSIUM 3.8 mmol/L (3.6-5.0); SODIUM 138.7 mmol/L (137-145)
[2019-03-09] MEDS: NORMAL SALINE 1000 ML 1,000 ML IV PRN ×2 (05:51→21:32)
--- NOTE | 2019-03-09 08:49 | RADIOLOGY REPORT (SQ) ---
EXAM DESCRIPTION: ABDOMEN 2 VIEWS COMPLETED DATE/TIME: 03/09/2019 7:40 am REASON FOR STUDY: flat and upright for SBO COMPARISON: [facility] 03/08/2019, 04/12/2010 CT abdomen pelvis 03/07/2019 Abdominal ultrasound 03/07/2019 NUMBER OF VIEWS: Two views. TECHNIQUE: Supine and erect/decubitus radiographic images of the abdomen acquired. LIMITATIONS: None. FINDINGS: FREE AIR: None. No abnormal gas collections. LUNG BASES: Clear. BOWEL GAS PATTERN: There is a nasogastric tube with the tip and side port in the stomach. Stomach is decompressed. There are air-fluid levels and mildly distended small bowel loops throughout the abdo men. Small amount of gas in the descending colon and rectosigmoid. Findings may represent a partial small bowel obstruction. Findings discussed with Dr. Garcia CALCIFICATIONS: No suspicious calcifications. Calcified pelvic phleboliths. SOFT TISSUES: No gross mass or suggestion of organomegaly. HARDWARE: IUD in the uterus. Nasogastric tube tip and side port in the stomach BONES: No acute fracture. No worrisome bone lesions. OTHER: No other significant finding. IMPRESSION: Persistent air-fluid levels in mildly dilated small bowel loops. Findings worrisome for partial small bowel obstruction. TECHNICAL DOCUMENTATION: JOB ID: [id number] [employer]- All Rights Reserved Reading location - IP/workstation name: [email or web address]
[2019-03-09] MEDS: FAMOTIDINE INJ/PF 20 MG/2 ML SDV IV SCH ×2 (09:42→21:33)
[2019-03-09] MEDS: ENOXAPARIN SODIUM INJ 40 MG/0.4 ML DISP.SYRIN SUBCUT SCH (09:44)
--- NOTE | 2019-03-09 10:05 | PDOC PROGRESS REPORT ---
Subjective Progress Note for:: 03/09/19 Subjective:: Has had a couple of bowel movements but still has epigastric abdominal pain. Reason For Visit: SMALL BOWEL OBSTRUCTION Physical Exam Vital Signs: Temp Pulse Resp BP Pulse Ox 98.1 F 93 17 119/93 H 92 03/08/19 23:18 03/08/19 23:18 03/08/19 23:18 03/08/19 23:18 03/08/19 23:18 Intake & Output 03/08/19 03/09/19 03/10/19 06:59 06:59 06:59 Intake Total 1991 1999 Output Total 650 Balance 1991 1350 Weight 108.409 kg 110.4 kg General appearance: PRESENT: no acute distress, cooperative Respiratory exam: PRESENT: clear to auscultation baudilio Cardiovascular exam: PRESENT: RRR GI/Abdominal exam: PRESENT: other - Soft, difficult to tell degree of distention with her body habitus. Tenderness without peritoneal signs in the epigastric region. NG output is bile-stained. Results Laboratory Results: 03/09/19 04:43 03/09/19 04:43 03/09/19 03/09/19 04:43 04:43 WBC 6.9 RBC 4.69 Hgb 14.5 Hct 41.9 MCV 89 MCH 31.0 MCHC 34.7 RDW 13.3 Plt Count 202 Seg Neutrophils % 73.2 Lymphocytes % 16.4 Monocytes % 9.1 Eosinophils % 1.0 Basophils % 0.3 Absolute Neutrophils 5.0 Absolute Lymphocytes 1.1 Absolute Monocytes 0.6 Absolute Eosinophils 0.1 Absolute Basophils 0.0 Sodium 138.7 Potassium 3.8 Chloride 105 Carbon Dioxide 24 Anion Gap 10 BUN 9 Creatinine 0.58 Est GFR ( Amer) > 60 Est GFR (Non-Af Amer) > 60 Glucose 106 Calcium 8.7 03/07/19 08:55 Troponin I < 0.012 Impressions: Abdomen/Pelvis CT 03/07/19 00:00 IMPRESSION: Partial small bowel obstruction. Transition zone appears to be some were in the mid abdomen. No obvious reason for obstruction. Chest X-Ray 03/07/19 00:00 IMPRESSION: NO ACUTE RADIOGRAPHIC FINDING IN THE CHEST.NG tube tip overlies the body of the stomach. Abdomen Ultrasound 03/07/19 10:45 IMPRESSION: NORMAL RIGHT UPPER QUADRANT ULTRASOUND. Abdomen X-Ray 06/25/19 06:00 IMPRESSION: Persistent air-fluid levels in mildly dilated small bowel loops. Findings worrisome for partial small bowel obstruction. Assessment & Plan - Diagnosis (1) Small bowel obstruction Is this a current diagnosis for this admission?: Yes Plan: Possible small bowel obstruction but patient is having bowel movements now. With the confounding findings, will obtain a small bowel follow series. If it does demonstrate evidence of bowel obstruction, will plan exploratory laparotomy.
--- NOTE | 2019-03-09 14:23 | RADIOLOGY REPORT (SQ) ---
EXAM DESCRIPTION: SMALL BOWEL SERIES COMPLETED DATE/TIME: 03/09/2019 2:08 pm REASON FOR STUDY: r/o sbo COMPARISON: CT abdomen pelvis 03/07/2019 Abdominal films 03/07/2019, 03/08/2019, 03/09/2019 FLUOROSCOPY TIME: 42 seconds 8 fluoroscopic digital spot images saved to PACS. LIMITATIONS: None. PROCEDURE: Initial devil tender image of abdomen acquired, followed by administration of 240 mL of water-so luble Gastrografin oral contrast. Serial radiographic images acquired. Fluoroscopic images recorded of the terminal ileum and other indicated areas. All images stored on PACS. FINDINGS: Admitted Attorneys film demonstrates a nasogastric tube tip and side port in the stomach. Few air-fill ed borderline distended small bowel loops in the mid abdomen. Air bubbles in nondistended colon. Ca lcified pelvic phleboliths. IUD in the uterus. Follow-through films demonstrate prompt gastric emptying into normal caliber small bowel loops with n ormal peristalsis. By 95 minutes, oral contrast was present in the ascending colon. Spot films of the distal small bowel demonstrate no evidence of stricture or obstruction. IMPRESSION: NORMAL SMALL BOWEL EXAM. COMMENT: Quality ID [id number]: Final reports for procedures using fluoroscopy that document radiation exp osure indices, or exposure time and number of fluorographic images (if radiation exposure indices are not available) TECHNICAL DOCUMENTATION: JOB ID: [id number] [employer]- All Rights Reserved Reading location - IP/workstation name: [email or web address]
--- NOTE | 2019-03-09 19:27 | PDOC PROGRESS REPORT ---
Subjective Progress Note for:: 03/09/19 Subjective:: Still feels bloated with some epigastric abdominal pain but has been having multiple bowel movements. Reason For Visit: SMALL BOWEL OBSTRUCTION Physical Exam Vital Signs: Temp Pulse Resp BP Pulse Ox 97.6 F 96 14 143/90 H 95 03/09/19 16:00 03/09/19 16:00 03/09/19 16:00 03/09/19 16:00 03/09/19 16:00 Intake & Output 03/08/19 03/09/19 03/10/19 06:59 06:59 06:59 Intake Total 1991 1999 260 Output Total 650 500 Balance 1991 1350 -240 Weight 108.409 kg 110.4 kg General appearance: PRESENT: no acute distress, cooperative GI/Abdominal exam: PRESENT: other - Soft with mild epigastric abdominal tenderness with no peritoneal signs. Results Laboratory Results: 03/09/19 04:43 03/09/19 04:43 03/09/19 03/09/19 04:43 04:43 WBC 6.9 RBC 4.69 Hgb 14.5 Hct 41.9 MCV 89 MCH 31.0 MCHC 34.7 RDW 13.3 Plt Count 202 Seg Neutrophils % 73.2 Lymphocytes % 16.4 Monocytes % 9.1 Eosinophils % 1.0 Basophils % 0.3 Absolute Neutrophils 5.0 Absolute Lymphocytes 1.1 Absolute Monocytes 0.6 Absolute Eosinophils 0.1 Absolute Basophils 0.0 Sodium 138.7 Potassium 3.8 Chloride 105 Carbon Dioxide 24 Anion Gap 10 BUN 9 Creatinine 0.58 Est GFR ( Amer) > 60 Est GFR (Non-Af Amer) > 60 Glucose 106 Calcium 8.7 03/07/19 08:55 Troponin I < 0.012 Impressions: Abdomen/Pelvis CT 03/07/19 00:00 IMPRESSION: Partial small bowel obstruction. Transition zone appears to be some were in the mid abdomen. No obvious reason for obstruction. Chest X-Ray 03/07/19 00:00 IMPRESSION: NO ACUTE RADIOGRAPHIC FINDING IN THE CHEST.NG tube tip overlies the body of the stomach. Abdomen Ultrasound 03/07/19 10:45 IMPRESSION: NORMAL RIGHT UPPER QUADRANT ULTRASOUND. Small Bowel X-Ray 03/09/19 00:00 IMPRESSION: NORMAL SMALL BOWEL EXAM. Abdomen X-Ray 03/09/19 06:00 IMPRESSION: Persistent air-fluid levels in mildly dilated small bowel loops. Findings worrisome for partial small bowel obstruction. Assessment & Plan - Diagnosis (1) Small bowel obstruction Is this a current diagnosis for this admission?: Yes Plan: No evidence of bowel obstruction by small bowel follow series. Will DC NG tube. The patient does well overnight will start a diet tomorrow.
[2019-03-10] MEDS ORDERED: SIMETHICONE 80 MG TAB.CHEW PO PRN (08:59)
[2019-03-10] MEDS: FAMOTIDINE INJ/PF 20 MG/2 ML SDV IV SCH ×2 (09:55→22:22)
[2019-03-10] MEDS: ENOXAPARIN SODIUM INJ 40 MG/0.4 ML DISP.SYRIN SUBCUT SCH (09:56)
[2019-03-10] MEDS: NORMAL SALINE 1000 ML 1,000 ML IV PRN ×2 (09:56→20:37)
[2019-03-10] MEDS: MORPHINE SULFATE 10 MG/ML INJ IV PRN (14:38)
--- NOTE | 2019-03-10 17:39 | PDOC PROGRESS REPORT ---
Subjective Progress Note for:: 03/10/19 Subjective:: Still with epigastric pains Tolerated clears earlier but then c/o nausea She feels may be related to Reflux Reason For Visit: SMALL BOWEL OBSTRUCTION Physical Exam Vital Signs: Temp Pulse Resp BP Pulse Ox 98.3 F 86 16 145/78 H 96 03/10/19 15:23 03/10/19 15:23 03/10/19 15:23 03/10/19 15:23 03/10/19 15:23 Intake & Output 03/09/19 03/10/19 03/11/19 06:59 06:59 06:59 Intake Total 2000 1260 1000 Output Total 650 500 Balance 0401 245 1429 Weight 110.4 kg 105 kg Exam: abdomen is distended and tender at epigastric area SBFT was normal. No SBO Results Laboratory Results: 03/09/19 04:43 03/09/19 04:43 03/07/19 08:55 Troponin I < 0.012 Impressions: Abdomen/Pelvis CT 03/07/19 00:00 IMPRESSION: Partial small bowel obstruction. Transition zone appears to be some were in the mid abdomen. No obvious reason for obstruction. Chest X-Ray 03/07/19 00:00 IMPRESSION: NO ACUTE RADIOGRAPHIC FINDING IN THE CHEST.NG tube tip overlies the body of the stomach. Abdomen Ultrasound 03/07/19 10:45 IMPRESSION: NORMAL RIGHT UPPER QUADRANT ULTRASOUND. Small Bowel X-Ray 03/09/19 00:00 IMPRESSION: NORMAL SMALL BOWEL EXAM. Abdomen X-Ray 03/09/19 06:00 IMPRESSION: Persistent air-fluid levels in mildly dilated small bowel loops. Findings worrisome for partial small bowel obstruction. Assessment & Plan - Diagnosis (1) Abdominal pain Qualifiers: Abdominal location: upper abdomen, unspecified Qualified Code(s): R10.10 - Upper abdominal pain, unspecified Is this a current diagnosis for this admission?: Yes (2) Nausea & vomiting Qualifiers: Vomiting type: unspecified Vomiting Intractability: non-intractable Qualified Code(s): R11.2 - Nausea with vomiting, unspecified Is this a current diagnosis for this admission?: Yes - Time Time Spent with patient: 15-24 minutes - Inpatient Certification Medical Necessity: Need For IV Fluids, Need for Pain Control - Plan Summary Plan Summary: Start PPI Gradually resume diet
[2019-03-10] MEDS: PANTOPRAZOLE SODIUM 40 MG VIAL IV SCH (18:59)
[2019-03-11] MEDS: PANTOPRAZOLE SODIUM 40 MG VIAL IV SCH (06:08)
[2019-03-11 10:39] VITALS: BP 141/70
--- NOTE | 2019-03-16 22:00 | DISCHARGE SUMMARY E ---
Discharge Summary NAME: ANISHA RIBEIRO : 1970 AGE: 48Y ADMITTED: 03/07/2019 DISCHARGED: 03/11/2019 FINAL DIAGNOSES: 1. Abdominal pain. 2. Gastroesophageal reflux. HOSPITAL COURSE: This is a 48-year-old female who was complaining of abdominal pain with nausea and vomiting on the night prior to admission. She had a CT scan of the abdomen in the ED which showed partial small bowel obstruction. However, a subsequent small bowel follow through done on 03/09, which was normal. The patient then gradually started on p.o. diet and tolerated regular diet on discharge on 03/11/19. The patient also was started in PPI. She was discharged improved on 03/11/19. DISCHARGE INSTRUCTIONS: The patient was given a prescription for Nexium 20 mg p.o. twice a day for the next 2 weeks. The patient advised to check with her primary physician for follow up or she can be followed up in our surgical clinic in 2 weeks. DICTATING PHYSICIAN: MERLINE ARMANDO M.D. [id number] [facility]#: [id number] ID: [id number] JOB#: [id number] ACCT: [id number] cc:Karina PITTMAN M.D. >
== END 2019-03-11 10:52 | disposition home or self-care (01) | DRG 392 ==
LOC: ER 08:13 → EH 17:33 → 4N 18:46
PROVIDERS: ADMIT Surgery; ATTEND Surgery
DX: K21.9 Gastro-esophageal reflux disease without esophagitis (principal); Z68.41 Body mass index [BMI] 40.0-44.9, adult; F31.9 Bipolar disorder, unspecified; E66.01 Morbid (severe) obesity due to excess calories
CPT/HCPCS: 36415; 71045; 74019; 74177; 74250; 76705; 80048; 80053; 81001; 81025; 83605; 83690; 84484; 85025; 87493; 93005; 93010; 94799; 96361; 96374; 96375; 96376; 99285; J1650; J2270; J2405; J3490; J7030; S0028; S0164